=== PATIENT | female | born 1990 | race Caucasian/White ===

== ENCOUNTER 2020-09-08 10:42 | Emergency (ER) | payer OTHER ==
[~2020-09-08 10:42] MED LIST: ACYCLOVIR200 MG PO; FOLIC ACID0.4 MG PO; PRENATAL VITAM1 EAC3 PO
[2020-09-08 11:58] LABS: HEMOGLOBIN 14.3 gm/dl (12.3-15.3); RED BLOOD COUNT 4.97 M/UL (4.00-5.10); WHITE BLOOD COUNT 9.8 K/UL (4.5-11.0)
[2020-09-08 12:25] LABS: BUN/CREATININE RATIO 12 (0-10)
== END 2020-09-08 12:55 | disposition home or self-care (01) ==
LOC: ER1 10:42
PROVIDERS: Physician Assistant
DX: O20.0 Threatened abortion (principal); Z3A.12 12 weeks gestation of pregnancy; O99.331 Smoking (tobacco) complicating pregnancy, first trimester; F17.210 Nicotine dependence, cigarettes, uncomplicated
CPT/HCPCS: 80053; 81001; 84702; 85025; 86900; 86901; 99284

== ENCOUNTER 2021-03-14 14:29 | Inpatient (IN) | payer OTHER ==
[~2021-03-14] VITALS: Ht 180.3 cm; Wt 140.6 kg
[2021-03-16 07:54] LABS: HEMOGLOBIN 11.9 gm/dl (12.3-15.3); RED BLOOD COUNT 3.85 M/UL (4.00-5.10); WHITE BLOOD COUNT 12.3 K/UL (4.5-11.0)
[2021-03-16] MEDS ORDERED: PRENATAL VITAM1 EAC6 PO (16:31)
[2021-03-16] MEDS ORDERED: VALTREX 500 MG500 MG PO (16:32)
[2021-03-17 07:34] LABS: HEMOGLOBIN 11.3 gm/dl (12.3-15.3)
[2021-03-17] MEDS ORDERED: IBUPROFEN800 MG PO ×2 (07:51→07:57)
[2021-03-17] MEDS ORDERED: COLACE100 MG PO ×2 (07:51→07:57)
[2021-03-17] MEDS ORDERED: PERCOCET 5/325 T1 EA PO ×2 (07:51→07:57)
[2021-03-17] MEDS ORDERED: HEMOCYTE324 MG PO (07:57)
== END 2021-03-18 14:03 | disposition home or self-care (01) | DRG 787 ==
LOC: LBRF 14:29 → OB 03-16 05:46
PROVIDERS: ADMIT Obstetrics & Gynecology
PROC: 10D00Z1 Extraction of Products of Conception, Low, Open Approach (ICD-10-PCS; principal; 2021-03-16 09:55)
DX: O32.1XX0 Maternal care for breech presentation, not applicable or unspecified (principal); O99.324 Drug use complicating childbirth; O98.32 Other infections with a predominantly sexual mode of transmission complicating childbirth; B00.9 Herpesviral infection, unspecified; O99.334 Smoking (tobacco) complicating childbirth; F17.200 Nicotine dependence, unspecified, uncomplicated; Z20.822 Contact with and (suspected) exposure to COVID-19; O99.892 Other specified diseases and conditions complicating childbirth; O99.214 Obesity complicating childbirth; E66.01 Morbid (severe) obesity due to excess calories; M79.7 Fibromyalgia; M06.9 Rheumatoid arthritis, unspecified; F19.10 Other psychoactive substance abuse, uncomplicated; Z37.0 Single live birth; Z3A.39 39 weeks gestation of pregnancy; O69.81X0 Labor and delivery complicated by cord around neck, without compression, not applicable or unspecified
CPT/HCPCS: 80307; 81001; 85014; 85018; 85025; 90471; J0690; J1200; J1885; J2274; J2370; J2405; J2550; J2590; J7120; U0003

== ENCOUNTER 2021-03-14 23:39 | Outpatient (CLI) | payer OTHER ==
[2021-03-16] MEDS ORDERED: PRENATAL VITAM1 EAC6 PO (16:31)
[2021-03-16] MEDS ORDERED: VALTREX 500 MG500 MG PO (16:32)
== END 2021-03-15 01:19 | disposition home or self-care (01) ==
LOC: GENOP 23:39
DX: O99.891 Other specified diseases and conditions complicating pregnancy (principal); M54.50 Low back pain, unspecified; O99.333 Smoking (tobacco) complicating pregnancy, third trimester; F17.210 Nicotine dependence, cigarettes, uncomplicated; O99.213 Obesity complicating pregnancy, third trimester; E66.9 Obesity, unspecified; O99.323 Drug use complicating pregnancy, third trimester; F11.11 Opioid abuse, in remission; Z3A.39 39 weeks gestation of pregnancy
CPT/HCPCS: G0463

== ENCOUNTER → 2021-04-22 | Outpatient (CLI) | payer OTHER ==
[~2021-04-22] MED LIST changes: +COLACE100 MG PO; +HEMOCYTE324 MG PO; +IBUPROFEN800 MG PO; +PERCOCET 5/325 T1 EA PO; +PRENATAL VITAM1 EAC6 PO; +VALTREX 500 MG500 MG PO
== END ==
LOC: EXRD 13:57
DX: M79.641 Pain in right hand (principal); M79.642 Pain in left hand; M85.842 Other specified disorders of bone density and structure, left hand; M85.841 Other specified disorders of bone density and structure, right hand
CPT/HCPCS: 73130

== ENCOUNTER 2021-05-10 02:14 | Emergency (ER) | payer OTHER | END 2021-05-10 04:06 | disposition home or self-care (01) | LOC: ER1 02:14 | DX: S62.317A Displaced fracture of base of fifth metacarpal bone, left hand, initial encounter for closed fracture (principal); F17.200 Nicotine dependence, unspecified, uncomplicated; W01.0XXA Fall on same level from slipping, tripping and stumbling without subsequent striking against object, initial encounter | CPT/HCPCS: 29130; 73130; 99283 ==

== ENCOUNTER → 2021-08-16 | Outpatient (CLI) | payer OTHER | LOC: LAB 14:11 | DX: O20.0 Threatened abortion (principal) | CPT/HCPCS: 36415; 84702 ==